=== PATIENT | female | born 1955 | race Caucasian/White ===

== ENCOUNTER → 2016-10-01 | Outpatient (CLI) | payer OTHER ==
[~2016-10-01] MED LIST: IOPAMIDOL (ISOVUE-300) 50 ML VIAL IV ONE
--- NOTE | 2016-10-01 15:58 | CT ---
CT Scan of the Abdomen (With Contrast) 1513 hours History: Right upper quadrant pain. Gallbladder polyps. R 10.11 Technique: Axial computed tomographic images of the abdomen were obtained with the uneventful intrav enous administration of 90 mL Isovue-300 contrast. No oral or rectal contrast which limits the study. Dose reduction techniques were utilized. CT Abdomen Findings: Lung bases: Normal. Liver: Normal. Biliary system: No obstruction. Spleen: Normal. Pancreas: Normal. Adrenals: Normal. Kidneys: No obstruction or solid masses. Abdominal Aorta: Mild atherosclerotic tortuous aorta and iliac arteries without aneurysm. No bowel obstruction, ascites, or significant retroperitoneal lymphadenopathy. Moderate stool throughout the colon consistent with constipation. The appendix is not identified sinc e the pelvis was not imaged. L3-L4 severe degenerative disk disease with moderate disk space narrowing, degenerative grade 1 anter olisthesis, disk bulge and moderate bilateral facet arthropathy resulting in moderate central canal s tenosis. L4-L5 mild/moderate central canal stenosis secondary to bilateral facet arthropathy and disk bulge. L5-S1 right paramedian disk herniation and facet arthropathy resulting in mild central canal stenosis and mild to moderate right neural foraminal stenosis. Impression: 1. Constipation. 2. No hepatosplenomegaly, hepatic masses, biliary obstruction, peripancreatic fluid or urinary tract obstruction. 3. Mild atherosclerotic aorta without aneurysm. 4. Degenerative lumbar spine especially at L3-L4 resulting in at least moderate central canal stenosi s. Consider MRI lumbar spine if clinically indicated. 5. Appendix not identified since the pelvis is not imaged. Consider additional imaging of the pelvis if there is clinical concern for appendicitis.
== END ==
LOC: FIMAGING 14:36
PROVIDERS: ATTEND Nurse Practitioner Family
DX: K82.4 Cholesterolosis of gallbladder (principal); K59.00 Constipation, unspecified; I70.0 Atherosclerosis of aorta; M51.36 Other intervertebral disc degeneration, lumbar region
CPT/HCPCS: Q9967

== ENCOUNTER → 2016-10-30 | Outpatient (CLI) | payer OTHER ==
--- NOTE | 2016-10-30 09:16 | US ---
Right Upper Quadrant Abdominal Sonogram History: Follow-up gallbladder polyp, cholesterolosis of the gallbladder, K82.4 Comparison: Ultrasound August 19, 2015 and January 22, 2014, CT October 01, 2016 Findings: The dominant gallbladder polyp measures 0.9 x 0.5 x 0.6 cm. It previously measured 0.9 x 0 .6 x 0.8 cm. No Doppler blood flow is identified within the polyp using color Doppler analysis. One o f 2 previously identified other tiny 3-4mm gallbladder polyps are stable. There is no generalized gal lbladder wall thickening, evidence for adenomyosis of the gallbladder wall or pericholecystic fluid. There is no intra or extrahepatic biliary dilatation. The liver is stable and normal measuring 13 cm in length. There is no ascites. A small focal echogenic area involving the lower pole of the right kidney is again present measuring 7 x 7 x 6 mm compared to prior 5 x 5 x 4 mm. It may represent a small angiomyolipoma, since no stone was seen on the CT of October 01. Impression:1. Little if any change in a 9 mm gallbladder polyp x15 months. The polyp did demonstrate growth between December 2013 and July 2015. Recommend continued follow-up ultrasound in 15 months.
== END ==
LOC: FIMAGING 08:08
PROVIDERS: ATTEND Nurse Practitioner Family
DX: K82.4 Cholesterolosis of gallbladder (principal)

== ENCOUNTER → 2018-03-05 | Outpatient (CLI) | payer OTHER | LOC: FIMAGING 08:11 | PROVIDERS: ATTEND Physician Assistant | DX: Z12.31 Encounter for screening mammogram for malignant neoplasm of breast (principal) ==